=== PATIENT | female | born 2000 | race Caucasian/White ===

== ENCOUNTER → 2023-04-04 06:59 | Outpatient (CLI) | payer OTHER, SELFPAY ==
--- NOTE | 2023-04-04 07:00 | DI.US.S_ITS ---
PROCEDURE: US OB <= 14 WEEKS FETUS INDICATIONS: THREATENED OUTSIDE/PRIOR DATING DATA: Last menstrual period (LMP): 01/26/2023 LMP-based estimated date of delivery (RAVI): 11/02/2023 First dating scan (date and location): 04/03/2023 Estimated date of delivery (RAVI) from first dating scan: 11/03/2023 TECHNIQUE: Real-time scanning was performed of the fetus and maternal pelvic organs, with image documentation. Endovaginal scanning was also performed to better visualize the fetus and maternal ovaries. COMPARISON: [facility], US, US OB <= 14 WEEKS FETUS, 04/03/2023, 15:30. FINDINGS: Embryo: Intrauterine gestational sac is seen with yolk sac and pole. Mean gestational sac diameter is 4.1 cm. [place]-rump length is 2.5 cm. A small perigestational sac hemorrhage is seen posteriorly measuring 3.4 x 2.6 x 0.2 cm. Additional perigestational sac hemorrhage is seen to the left of the gestational sac measuring 1.9 x 0.6 x 0.7 cm. Heart rate: No cardiac motion is seen. Maternal organs: A right corpus luteum cyst is noted. Left ovary is not well visualized. No adnexal mass. IMPRESSION: Intrauterine is seen with no cardiac motion, which is diagnostic for early failure. Two small perigestational sac hemorrhages are noted. Approved by: Dave Long M.D. on 04/04/2023 at 8:16
== END ==
PROVIDERS: PCP Advanced Practice Midwife; Referring Provider Specialist; Visit Provider Specialist
DX: O02.1 Missed abortion (principal)
CPT/HCPCS: 76801; 76817

== ENCOUNTER 2023-04-20 09:50 | Day surgery (SDC) | payer OTHER, SELFPAY ==
[2023-04-17 12:07] VITALS: BMI 24.9
[2023-04-20] VITALS (7 sets, daily range): BP systolic 84–112; BP diastolic 45–66; PULSE 61–89; RESP 10–18; TEMP 36.1–36.8; O2SAT 98–100; BMI 24.9
--- NOTE | 2023-04-20 | PATH_ITS ---
[facility] Accession Number: [id number] No. of containers..01 Tissue . 01 Material submitted: . product of conception - POC . 01 Diagnosis: Products of Conception: Products of conception identified. Outside consultation requested for IHC and DNA ploidy studies to exclude molar gestation; those results will be reported as an addendum. . . . . MRV 04/25/2023 1100 Local . 01 Electronically signed: . Thu Galvez MD, Pathologist NPI- [id number] . 01 Gross description: . The specimen is received in formalin labeled with the patient's name, , and products of conception, and consists of multiple variable raza spongy to membranous soft tissue fragments admixed with hemorrhagic material aggregating to 8.3 x 6.9 x 2.7 cm. A disrupted sac-like structure is identified measuring 4.2 x 1.7 x 0.2 cm. No tissue is identified. [employer] sections are submitted in cassettes A1-A2. ([id number]) /Lele 04/21/2023 1320 Local . 01 Pathologist provided ICD-10: O02.0 . 01 CPT . 517779 Specimen Comment: A courtesy copy of this report has been sent to [phone] Performed at: 01 [facility] [address] [place] [address] [address], [place], [place] [id number] MD Clement Aguirre MD Phone: [phone]
[2023-04-20] MEDS: LACTATED RINGERS 1,000 ML 42 ML IV (10:17)
--- NOTE | 2023-04-20 11:00 | SUR.OPER ---
Lithotomy on padded OR bed, head on pillow, arms secured on padded arm boards at <90 degrees abduction. Legs secured in padded yellow fins stirrups.
--- NOTE | 2023-04-20 11:02 | PM.GYNHP.1 ---
History of Present Illness History of Present Illness Reason for admission: missed Narrative: Alesha Leonardo is a 22 year old A2, LMP @ admitted with missed AB after failre to evacuate uterus with two doses of cytotec. Loss of viability documented with US x 3 with the most recent US in DI on 04/04/2023 showing: PROCEDURE:? US OB <= 14 WEEKS FETUS ? INDICATIONS:? THREATENED ? OUTSIDE/PRIOR DATING DATA:? Last menstrual period (LMP):? 01/26/2023 LMP-based estimated date of delivery (RAVI):? 11/02/2023 First dating scan (date and location):? 04/03/2023 Estimated date of delivery (RAVI) from first dating scan:? 11/03/2023 ? TECHNIQUE:? Real-time scanning was performed of the fetus and maternal pelvic organs, with image documentation.? Endovaginal scanning was also performed to better visualize the fetus and maternal ovaries.? ? COMPARISON:? [facility], US, US OB <= 14 WEEKS FETUS, 04/03/2023, 15:30. ? FINDINGS:? ? Embryo:? Intrauterine gestational sac is seen with yolk sac and pole.? Mean gestational sac diameter is 4.1 cm.? [place]-rump length is 2.5 cm.? A small perigestational sac hemorrhage is seen posteriorly measuring 3.4 x 2.6 x 0.2 cm.? Additional perigestational sac hemorrhage is seen to the left of the gestational sac measuring 1.9 x 0.6 x 0.7 cm. Heart rate:? No cardiac motion is seen. ? Maternal organs:? A right corpus luteum cyst is noted.? Left ovary is not well visualized.? No adnexal mass. ? ? IMPRESSION:? Intrauterine is seen with no cardiac motion, which is diagnostic for early failure.? Two small perigestational sac hemorrhages are noted. After consideration of all options, the patient has decided to move forward with suction curettage of the uterus to complete her missed . Blood type is unknown at the time of this dictation but will be drawn and reported prior to the patient's discharge.later today. [facility] Medical History (Updated 04/12/23 @ 19:48 by Rossy Pimentel) Anxiety (~2016) Depression (~2017) Eczema Heavy menstrual period Irregular menstrual cycle Painful menstrual periods Vasovagal syncope (~2018) Surgical History (Updated 03/08/23 @ 15:37 by Lissa Hunter RN) [place] teeth extracted Family History (Updated 04/12/23 @ 19:51 by Rossy Pimentel) Family/Other Hyperlipidemia Hypertension Depression Grandmother Depression Mental health problem Sister Depression Mental health problem Grandmother Breast cancer Grandmother Breast cancer Mother Hyperthyroidism Father Diabetes mellitus Hyperlipidemia Hypertension Mental health problem Grandfather History of heart disease Hypertension Social History marital status: number of children: 0 household members: spouse lives independently: Yes caregiver/support person: No housing: apartment pets and animals: No education level: high school occupational status: employed (works from home) current occupational exposures/hazards: No special zelalem needs: No travel history: recent (domestic only) seatbelt use: always water heater temp set < 120 deg: Yes working smoke detector in home: Yes fire extinguisher in home: Yes carbon monox detector in home: Yes firearms in home: No do you feel safe at home: Yes Smoking Status: Current some day smoker second hand exposure: No alcohol intake: current substance use type: marijuana (stopped when she found out she was ) during the past year weight has: increased > 10 lbs well-balanced diet: about half the time daily servings fruits/ve-4 caffeine: Yes (1 cup coffee in AM) Type(s) of exercise: walking and running frequency: 5-6 times per week duration: 15-30 minutes/day Meds Home Medications and Allergies Allergies Allergy/AdvReac Type Severity Reaction Status Date / Time No Known Drug Allergies Allergy Unverified 04/13/23 15:20 Review of Systems Review of Systems Narrative: Problem-specific ROS positives included in HPI Exam Vital Signs (past 8 hours): - 04/20/23 10:11 Temperature 97 F L Pulse Rate 87 Respiratory Rate 18 Blood Pressure 104/66 Pulse Oximetry 100 Oxygen Delivery Method Room Air Oxygen Delivery Method Room Air Const General: cooperative and comfortable Nutritional Appearance: average body habitus Orientation: alert and oriented x3 HENMT Head: normal to inspection, atraumatic and abrasion Ears: hearing grossly normal bilaterally Face and sinus: face symmetric Eyes General: appearance normal, both eyes and all related structures Conjunctivae: conjunctivae normal Sclera: sclerae normal EOM: EOM intact bilaterally Neck Neck: normal visual inspection Resp Effort & Inspection: normal respiratory effort and able to speak in complete sentences Auscultation: clear to auscultation bilaterally Cardio Rate: regular rate Rhythm: regular rhythm Heart Sounds: S1 normal, S2 normal and no murmurs GI Inspection: normal to inspection Palpation: soft and no hepatosplenomegaly External Female Exam: other (No significant bleeding noted) Extrem General: no calf tenderness Psych Appearance: grossly normal Mental Status: mental status grossly normal Speech and Movement: speech and movement normal Mood: congruent mood Affect: normal affect Attitude: cooperative Thought Process: normal Thought Content: normal Judgment: judgment good Assessment & Plan Assessment and plan (1) Missed with demise before 20 completed weeks of gestation: Problem details: 8 week size Status: Acute Plan Patient counseled regarding alternatives, risks, benefits, and potential complications associated with suction curettage of the uterus. With full understanding of the above, a written consent was executed, signed, and witnessed this date. Time Spent With Patient Time with patient: less than 30 minutes
--- NOTE | 2023-04-20 11:22 | PM.PREOP ---
Pre-operative Note COVID-19 COVID-19 status: Not tested Criteria for continued procedure: Non-surgical alternatives not available or appropriate per current SOC Interval Note History & Physical reviewed/Exam performed by Physician: Yes Changes to H&P: No
--- NOTE | 2023-04-20 11:53 | P.OP_ITS ---
Operative Date/Time/Diagnoses Date of procedure: 04/20/23 Time of procedure: 11:10 Pre-op diagnosis: Missed Post-op diagnosis: same Procedure & Clinicians Procedure: Procedures Operation Date: 04/20/23 11:30 Actual Procedure Side Surgeon christos keenan D&C Keon Cesar MD Indications: Alesha Leonardo is a 22 year old A2, LMP @ admitted with missed AB after failre to evacuate uterus with two doses of cytotec.? Loss of viability documented with US x 3 with the most recent US in DI on 04/04/2023 showing: PROCEDURE:? US OB <= 14 WEEKS FETUS ? INDICATIONS:? THREATENED ? OUTSIDE/PRIOR DATING DATA:? Last menstrual period (LMP):? 01/26/2023 LMP-based estimated date of delivery (RAVI):? 11/02/2023 First dating scan (date and location):? 04/03/2023 Estimated date of delivery (RAVI) from first dating scan:? 11/03/2023 ? TECHNIQUE:? Real-time scanning was performed of the fetus and maternal pelvic organs, with image documentation.? Endovaginal scanning was also performed to better visualize the fetus and maternal ovaries.? ? COMPARISON:? [facility], US, US OB <= 14 WEEKS FETUS, 04/03/2023, 15:30. ? FINDINGS:? ? Embryo:? Intrauterine gestational sac is seen with yolk sac and pole.? Mean gestational sac diameter is 4.1 cm.? [place]-rump length is 2.5 cm.? A small perigestational sac hemorrhage is seen posteriorly measuring 3.4 x 2.6 x 0.2 cm.? Additional perigestational sac hemorrhage is seen to the left of the gestational sac measuring 1.9 x 0.6 x 0.7 cm. Heart rate:? No cardiac motion is seen. ? Maternal organs:? A right corpus luteum cyst is noted.? Left ovary is not well visualized.? No adnexal mass. ? ? IMPRESSION:? Intrauterine is seen with no cardiac motion, which is diagnostic for early failure.? Two small perigestational sac hemorrhages are noted. After consideration of all options, the patient has decided to move forward with suction curettage of the uterus to complete her missed and is admitted today for her scvheduled surgery.? Surgeon: Keon Cesar Anesthesia Type: General Operative Notes Findings: 10 week uterine size prior to evacuation and 8 week size post evacuation. Moderate amounts of POCs were obtained. Closure Type: not applicable Specimen(s): products of conception Applied: other (Pitocin 10 units IM, Methergine 0.2 mg IM) Estimated blood loss (mL): 150 Procedure in detail: With the patient under general anesthesia in the modified dorsal lithotomy position, the perineum, and vagina were prepped and draped in the usual fashion for suction curettage. A pre-surgical safety time-out was then taken in accordance with [facility] Main OR protocols. A bivalve speculum was inserted in the vagina and the cervix easily visualized. The anterior lip of the cervix was grasped with an Allis clamp and the endocervical canal was dilated gently to 8 mm in diameter. An 8 mm curved curette was then introduced through the endocervical canal into the endometrial cavity and suction applied. Numerous passes were taken in all quadrants of the endometrial cavity producing moderate amounts of products of conception. Gentle sharp curettage was then performed in all quadrants to make sure that there was no retained POCs and none were evident. A final pass with the suction curette was performed and no additional tissue was obtained. The operation was then terminated by removal of the suction curette from the endometrial cavity, and the Allis clamp from the anterior lip of the cervix. The patient was awakened from anesthesia and transferred to the PACU for a period of observation and recovery after having tolerated the procedure well. Complications: none Post-operative Condition: stable Disposition: PACU Plan for aftercare: Routine postop care. Postop follow-up in 2 weeks or as needed.
--- NOTE | 2023-04-20 12:34 | SUR.PHASEII ---
Tearful, denies pain, no N/V. Ready to discharge and wants to see her . Dressed self and taken to car by volunteer. all questions answered.
== END 2023-04-20 12:46 | disposition home or self-care (01) ==
PROVIDERS: PCP Advanced Practice Midwife; Referring Provider Obstetrics & Gynecology; Visit Provider Obstetrics & Gynecology
PROC: (CPT 58120; principal; 2023-04-20 11:30)
DX: O02.1 Missed abortion (principal); Z3A.10 10 weeks gestation of pregnancy
CPT/HCPCS: 59820; J1100; J1885; J2250; J2405; J2590; J2704; J3010

== ENCOUNTER 2023-04-28 19:29 | Day surgery (SDC) | payer OTHER, SELFPAY ==
--- NOTE | 2023-04-28 | PATH_ITS ---
[facility] Accession Number: [id number] No. of containers..01 Tissue . 01 Material submitted: . product of conception - RETAINED PRODUCTS . 01 Diagnosis: Uterine Contents: Degenerated chorionic villi (products of conception). - Blood clot, gestational endometrium, and decidual tissues. - No evidence for gestational trophoblastic disease. MRV 05/03/2023 1758 Local . 01 Electronically signed: . Edie Murillo MD, Pathologist NPI- [id number] . 01 Gross description: . The specimen is received in formalin labeled with the patient's name, , and retained products consists of multiple raza, variably spongy to membranous soft tissue admixed with hemorrhagic material aggregating to 8.4 x 7.5 x 2.0 cm. No tissue is identified. [employer]rays sections are submitted in cassettes A1-A2. ([id number]) /MRV 05/01/2023 1603 Local . 01 Pathologist provided ICD-10: O02.9 . 01 CPT . 705338 Specimen Comment: A courtesy copy of this report has been sent to [phone] Performed at: 01 [facility] [address] [place] [address] [address], [place], [place] [id number] MD Clement Aguirre MD Phone: [phone]
[2023-04-28 19:41] VITALS: BP 110/53; PULSE 59; RESP 18; TEMP 36.8; O2SAT 100; BMI 24.0
--- NOTE | 2023-04-28 19:49 | ED_ITS ---
HPI - General Adult General Chief complaint: Vaginal Bleeding Stated complaint: Vaginal bleeding, abd pain, nausea after D&C 8 day Time Seen by Provider: 04/28/23 19:49 Source: patient Mode of arrival: Ambulatory History of Present Illness HPI narrative: 22-year-old woman underwent D&C on April 20 with a missed after retained products were appreciated following 2 doses of Cytotec. Patient returns today complaining of continued light bleeding since the D&C, cramping for the last hour dizziness and weakness with 9/10 lower abdominal pain. Bleeding has significantly increased over the last hour with clots and continue bleeding. She does not describe fevers. Related Data Allergies Allergy/AdvReac Type Severity Reaction Status Date / Time No Known Drug Allergies Allergy Verified 04/28/23 19:41 Review of Systems Review of Systems Narrative: Pertinent positive and negative findings as per HPI Patient History Medical History (Updated 04/28/23 @ 21:47 by Leah Velásquez MD) Anxiety (~2017) Depression (~2017) Eczema Heavy menstrual period Irregular menstrual cycle Painful menstrual periods Vasovagal syncope (~2018) Surgical History (Updated 04/28/23 @ 21:19 by Mery Gallegos MD) H/O dilation and curettage [place] teeth extracted Family History Family/Other Hyperlipidemia Hypertension Depression Grandmother Depression Mental health problem Sister Depression Mental health problem Grandmother Breast cancer Grandmother Breast cancer Mother Hyperthyroidism Father Diabetes mellitus Hyperlipidemia Hypertension Mental health problem Grandfather History of heart disease Hypertension Social History marital status: number of children: 0 household members: spouse lives independently: Yes caregiver/support person: No housing: apartment pets and animals: No education level: high school occupational status: employed (works from home) current occupational exposures/hazards: No special zelalem needs: No travel history: recent (domestic only) seatbelt use: always water heater temp set < 120 deg: Yes working smoke detector in home: Yes fire extinguisher in home: Yes carbon monox detector in home: Yes firearms in home: No do you feel safe at home: Yes Smoking Status: Current every day smoker second hand exposure: No alcohol intake: current substance use type: marijuana (stopped when she found out she was ) during the past year weight has: increased > 10 lbs well-balanced diet: about half the time daily servings fruits/ve-4 caffeine: Yes (1 cup coffee in AM) Type(s) of exercise: walking and running frequency: 5-6 times per week duration: 15-30 minutes/day Smoking Status: Current every day smoker alcohol intake frequency: holidays/special occasions only Substance Use Type: marijuana Exam Initial Vital Signs Initial Vital Signs: Vital Signs Temperature 98.2 F 04/28/23 19:41 Pulse Rate 59 L 04/28/23 19:41 Respiratory Rate 18 04/28/23 19:41 Blood Pressure 110/53 L 04/28/23 19:41 Pulse Oximetry 100 04/28/23 19:41 Oxygen Delivery Method Room Air 04/28/23 19:41 General: Pale, anxious, moderate lower abdominal pain. Able to give a complete and coherent history. Well-nourished well-developed HEENT: Dry mucous membranes, normal sclera with reactive pupils, Respiratory: Lungs are clear to auscultation, no wheezing no rales no rhonchi. Full and symmetrical air movement Cardiac: Regular rate and rhythm no murmurs no bruits Abdomen: Soft, tender in pelvic quadrants without rebound or guarding, good bowel tones, no flank pain Skin: Pale, Warm and dry, no rashes Neurologic: Grossly neurologically intact with no obvious asymmetries or abnormalities Extremities: No trauma, well perfused Psych: Cooperative, appropriate insight and affect Course Orders Ordered: ED Orders 04/28/23 20:00 US pelvic complete Stat 04/28/23 20:07 Beta HCG, Quant [HCG Quantitative /Beta subunit] Stat Complete Blood Count AUTO DIFF Stat Comprehensive Metabolic Panel Stat Type and Screen Stat Albuterol (Albuterol 2.5 Mg/3 Ml Neb (Adult)) 2.5 mg INH NOW PRN PRN Reason: Coughing, Wheezing, Dyspnea Benzocaine (Benzocaine/Menthol 1 Jf Pkt) 1 each PO PRN PRN PRN Reason: Sore Throat Fentanyl (Fentanyl 100 Mcg/2 Ml Inj) 0 mcg IV Q5M PRN PRN Reason: Pain, Moderate (4-6) Hydromorphone HCl (Hydromorphone 2 Mg Inj) 0 mg IV Q5M PRN PRN Reason: Pain, Severe (7-10) Hydroxyzine Pamoate (Hydroxyzine Pamoate 25 Mg Capsule) 50 mg PO NOW PRN PRN Reason: Moderate Pain Lactated Ringer's (Lactated Ringers) 1,000 mls @ 120 mls/hr IV CONT ALEJANDRO Lorazepam (Lorazepam 2 Mg/Ml Inj) 0.5 mg IV NOW PRN PRN Reason: Anxiety Meperidine HCl (Meperidine 50 Mg/Ml Inj) 25 mg IV PACUNOW PRN PRN Reason: Moderate pain or shivering Metoclopramide HCl (Metoclopramide 10 Mg/2 Ml Inj) 10 mg IV NOW PRN PRN Reason: Nausea And Vomiting Ondansetron HCl (Ondansetron 4 Mg/2 Ml Inj) 4 mg IV NOW PRN PRN Reason: Nausea And Vomiting Oxycodone HCl (Oxycodone Ir 5 Mg Tablet) 5 mg PO PACUNOW PRN PRN Reason: Mild or moderate pain Discontinued Medications Sodium Chloride (Normal Saline 0.9%) 1,000 mls @ 1,000 mls/hr IV BOLUS ONE Stop: 04/28/23 21:01 Last Infusion: 04/28/23 20:57 Dose: 0 mls/hr Documented By: Admin: 04/28/23 20:18 Dose: 1,000 mls/hr Documented By: MARIEL Ketorolac Tromethamine (Ketorolac 30 Mg/Ml Vial) 15 mg IV NOW ONE Stop: 04/28/23 20:03 Last Admin: 04/28/23 20:17 Dose: 15 mg Documented By: MARIEL Ondansetron HCl (Ondansetron 4 Mg/2 Ml Inj) 4 mg IV NOW ONE Stop: 04/28/23 20:03 Last Admin: 04/28/23 20:15 Dose: 4 mg Documented By: MARIEL Oxycodone/Acetaminophen (Oxycodone/Apap 5/325 Prepack) 1 bottle MISC SEEINSTR ONE Stop: 04/28/23 21:03 Last Admin: 04/28/23 21:14 Dose: 1 bottle Documented By: MARIEL Oxycodone/Acetaminophen (Oxycodone/Apap 5/325 Prepack) 1 bottle MISC SEEINSTR ONE Stop: 04/28/23 21:11 Vital Signs Vital signs: Vital Signs - 8 hr 04/28/23 19:41 Temperature 98.2 F Pulse Rate 59 L Respiratory Rate 18 Blood Pressure 110/53 L Pulse Oximetry 100 Oxygen Delivery Method Room Air Medical Decision Making Lab Data 04/28/23 20:07 04/28/23 20:07 Labs: Lab Results 04/28/23 04/28/23 04/28/23 Range/Units 20:07 20:07 20:07 WBC 9.3 (4.5-11.0) X10^3/uL RBC 4.10 (4.0-5.2) X10^6/uL Hgb 11.9 L (12.0-16.0) g/dL Hct 34.3 L (36-46) % MCV 83.8 (80-100) fL MCH 29.1 (26-34) PG MCHC 34.7 (30-36) % RDW 12.7 (11.6-14.8) % Plt Count 350 (150-400) X10^3/uL Neut % (Auto) 48.6 L (50-75) % Lymph % (Auto) 42.6 H (25-40) % [place] % (Auto) 5.7 (3-14) % Eos % (Auto) 2.5 (2-4) % Baso % (Auto) 0.6 (0-2) % Neut # (Auto) 4500 (9800-1095) /uL Lymph # (Auto) 4000 (8384-5823) /uL [place] # (Auto) 500 (0-900) /uL Eos # (Auto) 200 (0-450) /uL Baso # (Auto) 100 (0-100) /uL Sodium 136 L (137-145) mmol/L Potassium 3.6 (3.4-5.1) mmol/L Chloride 103 (98-107) mmol/L Carbon Dioxide 22 (22-32) mmol/L BUN 11 (7-17) mg/dL Creatinine 0.64 (0.52-1.04) mg/dL Estimated GFR > 60 (>60) mL/min BUN/Creatinine Ratio 17.2 (6-22) Glucose 104 H (70-100) mg/dL Calcium 8.8 (8.4-10.2) mg/dL Total Bilirubin 0.3 (0.2-1.3) mg/dL AST 26 (14-36) IU/L ALT 17 (<35) IU/L Alkaline Phosphatase 46 (38-126) U/L Total Protein 7.5 (6.3-8.2) g/dL Albumin 4.3 (3.5-5.0) g/dL Globulin 3.2 (1.7-4.1) g/dL Albumin/Globulin Ratio 1.3 (1.0-2.8) HCG, Quant mIU/mL Blood Type A Positive Antibody Screen Negative 04/28/23 Range/Units 20:07 WBC (4.5-11.0) X10^3/uL RBC (4.0-5.2) X10^6/uL Hgb (12.0-16.0) g/dL Hct (36-46) % MCV (80-100) fL MCH (26-34) PG MCHC (30-36) % RDW (11.6-14.8) % Plt Count (150-400) X10^3/uL Neut % (Auto) (50-75) % Lymph % (Auto) (25-40) % [place] % (Auto) (3-14) % Eos % (Auto) (2-4) % Baso % (Auto) (0-2) % Neut # (Auto) (4547-2420) /uL Lymph # (Auto) (5576-1620) /uL [place] # (Auto) (0-900) /uL Eos # (Auto) (0-450) /uL Baso # (Auto) (0-100) /uL Sodium (137-145) mmol/L Potassium (3.4-5.1) mmol/L Chloride (98-107) mmol/L Carbon Dioxide (22-32) mmol/L BUN (7-17) mg/dL Creatinine (0.52-1.04) mg/dL Estimated GFR (>60) mL/min BUN/Creatinine Ratio (6-22) Glucose (70-100) mg/dL Calcium (8.4-10.2) mg/dL Total Bilirubin (0.2-1.3) mg/dL AST (14-36) IU/L ALT (<35) IU/L Alkaline Phosphatase (38-126) U/L Total Protein (6.3-8.2) g/dL Albumin (3.5-5.0) g/dL Globulin (1.7-4.1) g/dL Albumin/Globulin Ratio (1.0-2.8) HCG, Quant 178 mIU/mL Blood Type Antibody Screen MDM Narrative Medical decision making narrative: CC: Vaginal bleeding and cramping, new problem uncertain prognosis Complicating co-morbidities: D&C on April 20 Data collected from: patient, Medical records reviewed: Surgical notes from April 20 reviewed Differential considered: Retained products of conception, endomyometritis, menstrual cycle Exam documented above, pertinent findings include: Pelvic cramping and increasing vaginal bleeding Lab Test results independently reviewed as above. Pertinent findings: CBC shows mild anemia at 11.9 and 34.3 with no leukocytosis. No prior for comparison CMP is reviewed and is unremarkable Imaging studies independently reviewed: Preliminary ultrasound report shows vascular retained products of conception Consultations: 830pm Dr Gallegos. Treatments: Fluids, parenteral pain medications Re-evaluations: Patient is feeling somewhat better, relatively heavy vaginal bleeding continues. Discussion: 22-year-old woman with a D&C on April 20 after failing Cytotec. Still with retained products for ultrasound today with increasing cramping and bleeding. Care is reviewed with Dr. Gallegos and patient will be taken to the operating room for repeat D&C. Findings and recommendations reviewed with patient. Questions are answered. In discussion with Dr. Gallegos, she is given a small prepack of Percocet as her surgery will be done close to midnight and no outpatient options for filling prescriptions are available. Discharge Plan Departure Patient Disposition: Admitted to Surgery Clinical Impression: Retained products of conception, Vaginal bleeding Admit Date/Time: 04/28/23 20:41 Admit Provider: Mery Gallegos
--- NOTE | 2023-04-28 20:00 | DI.US.S_ITS ---
PROCEDURE: US PELVIC COMPLETE INDICATIONS: BLEEDING AFTER D C ON 04/20 TECHNIQUE: Real-time scanning was performed of the pelvic organs, with image documentation. Additional endovaginal scanning was necessary due to incomplete visualization of the adnexal and endometrial structures by transabdominal scanning. COMPARISON: Located Within [facility], US, US OB <= 14 WEEKS FETUS, 04/04/2023, 7:16. FINDINGS: Uterus: Uterus is retroverted and normal in size at 8.8 x 4.9 x 5.9 cm. The myometrium is homogeneous. The endometrium measures 33.7 mm combined thickness. Heterogeneous echotexture within thickened endometrium is seen with mildly increased vascularity. Ovaries: The right ovary measures 2.9 x 2.2 x 2.4 cm, with a calculated ovarian volume of 7.9 cc. The left ovary is not well visualized on this study. 2.2 x 1.0 x 1.7 cm hypoechoic structure is noted in right ovary with increased vascularity. Less than 12 follicles can be seen in right ovary. No adnexal masses are seen. Other: Small amount of free fluid is seen in posterior cul-de-sac. IMPRESSION: 1. Thickened endometrium with heterogeneous echotexture and mildly increased vascularity concerning for retained products. 2. Nonspecific hypoechoic area within right ovary and show increased vascularity. This is of indeterminate etiology . Follow-up study in 4-6 weeks is recommended. Left ovary is not visualized on this study. No gross adnexal mass. We strive to produce accurate, complete, and clear reports of imaging services. To assist us in improving patient care, this report was composed using standard report templates and voice recognition software. Therefore, it may contain abnormal punctuation, insertions and/or omissions. Occasional wrong-word or sound-alike substitutions may occur. Though we review the report and make efforts to correct it, we do recommend that the report be read carefully in proper context to recognize any text inaccuracies. Dictated by: Augie Butler M.D. on 04/28/2023 at 20:43 Approved by: Augie Butler M.D. on 04/28/2023 at 20:49
[2023-04-28] MEDS: ONDANSETRON 4 MG/2 ML INJ IV (20:15)
[2023-04-28 20:16] LABS: Add Manual Diff / Slide Review NO; Basophils Absolute Auto 100 /uL (0-100); Basophils Percent Auto 0.6 % (0-2); Eosinophils Absolute Auto 200 /uL (0-450); Eosinophils Percent Auto 2.5 % (2-4); Hematocrit 34.3 % (36-46); Hemoglobin 11.9 g/dL (12.0-16.0); Lymphocytes Absolute Auto 4000 /uL (1100-4500); Lymphocytes Percent Auto 42.6 % (25-40); Mean Corpuscular HGB Conc 34.7 % (30-36); Mean Corpuscular Hemoglobin 29.1 PG (26-34); Mean Corpuscular Volume 83.8 fL (80-100); Monocytes Absolute Auto 500 /uL (0-900); Monocytes Percent Auto 5.7 % (3-14); Neutrophils Absolute Auto 4500 /uL (1500-7000); Neutrophils Percent Auto 48.6 % (50-75); Platelet Count 350 X10^3/uL (150-400); Red Cell Distribution Width 12.7 % (11.6-14.8); White Blood Cell Count 9.3 X10^3/uL (4.5-11.0)
[2023-04-28] MEDS: KETOROLAC 30 MG/ML VIAL 15 MG IV (20:17)
[2023-04-28] MEDS: SODIUM CHLORIDE 0.9% 1,000 ML 1000 ML IV (20:18)
--- NOTE | 2023-04-28 20:20 | PC.NURSE ---
Patient had d/c 8 days ago. Has been doing well until this afternoon. Sudden onset of significant cramping and pain with large gush of bleeding reports increase in bleeding with about 5 clots. Patient states until this afternoon pain was manageable and didn't even take anything this morning. Patient states she was more active today than she has been since D/C. Patient mucous membranes appear dry and generally pale. patient reports mild dizziness with activity
[2023-04-28 20:28] LABS: Alanine Aminotransferase 17 IU/L (<35); Albumin 4.3 g/dL (3.5-5.0); Albumin Globulin Ratio 1.3 (1.0-2.8); Alkaline Phosphatase 46 U/L (38-126); Aspartate Aminotransferase 26 IU/L (14-36); BUN Creatinine Ratio 17.2 (6-22); Bilirubin Total 0.3 mg/dL (0.2-1.3); Blood Urea Nitrogen 11 mg/dL (7-17); Calcium 8.8 mg/dL (8.4-10.2); Carbon Dioxide 22 mmol/L (22-32); Chloride 103 mmol/L (98-107); Estimated Glomerular Filt Rate > 60 mL/min (>60); Globulin 3.2 g/dL (1.7-4.1); Glucose 104 mg/dL (70-100); HEMOLYSIS 48 (0-50); Potassium 3.6 mmol/L (3.4-5.1); Sodium 136 mmol/L (137-145); Total Protein 7.5 g/dL (6.3-8.2)
[2023-04-28 20:46] LABS: HCG Quantitative /Beta subunit 178 mIU/mL
[2023-04-28 20:56] VITALS: BP 104/55; PULSE 88; RESP 16; O2SAT 99
--- NOTE | 2023-04-28 21:07 | PC.NURSE ---
Consent signed. Patient sending jewelry home with Sebastian (). Sebastian will step out to picking tech clothing for patient for d/c. He can be reached at [phone].
[2023-04-28] MEDS: OXYCODONE/APAP 5/325 PREPACK 1 BOTTLE MISC (21:14)
--- NOTE | 2023-04-28 21:15 | PC.NURSE ---
Prepack scanned and dispensed to patient for discharge. Placed in patient belonging bag for patient.
--- NOTE | 2023-04-28 21:17 | P.HPOB_ITS ---
History of Present Illness History of Present Illness Reason for admission: vaginal bleeding (After suction D&C) Narrative: Alesha Leonardo is a 22 year old female 2 para 0020 with retained products of conception. Patient presented to emergency department with bright red bleeding soaking a pad in less than an hour. She also had significant cramping. She underwent a Cytotec trial for a missed . She then had a suction D&C on April 20, 2023. She has continued to bleed since the D&C but the pain and bleeding significantly increased today. [facility] Medical History Anxiety (~2017) Depression (~2017) Eczema Heavy menstrual period Irregular menstrual cycle Painful menstrual periods Vasovagal syncope (~2018) Surgical History (Updated 04/28/23 @ 21:19 by Mery Gallegos MD) H/O dilation and curettage [place] teeth extracted Family History Family/Other Hyperlipidemia Hypertension Depression Grandmother Depression Mental health problem Sister Depression Mental health problem Grandmother Breast cancer Grandmother Breast cancer Mother Hyperthyroidism Father Diabetes mellitus Hyperlipidemia Hypertension Mental health problem Grandfather History of heart disease Hypertension Social History marital status: number of children: 0 household members: spouse lives independently: Yes caregiver/support person: No housing: apartment pets and animals: No education level: high school occupational status: employed (works from home) current occupational exposures/hazards: No special [place] needs: No travel history: recent (domestic only) seatbelt use: always water heater temp set < 120 deg: Yes working smoke detector in home: Yes fire extinguisher in home: Yes carbon monox detector in home: Yes firearms in home: No do you feel safe at home: Yes Smoking Status: Current every day smoker second hand exposure: No alcohol intake: current substance use type: marijuana (stopped when she found out she was ) during the past year weight has: increased > 10 lbs well-balanced diet: about half the time daily servings fruits/ve-4 caffeine: Yes (1 cup coffee in AM) Type(s) of exercise: walking and running frequency: 5-6 times per week duration: 15-30 minutes/day Meds Home Medications and Allergies Allergies Allergy/AdvReac Type Severity Reaction Status Date / Time No Known Drug Allergies Allergy Verified 04/28/23 19:41 Exam Vital Signs (past 8 hours): - 04/28/23 19:41 04/28/23 20:56 Temperature 98.2 F Pulse Rate 59 L 88 Respiratory Rate 18 16 Blood Pressure 110/53 L 104/55 L Pulse Oximetry 100 99 Oxygen Delivery Method Room Air Room Air Oxygen Delivery Method Room Air Narrative Exam Narrative: HEENT: No thyromegaly, no anterior cervical or supraclavicular lymphadenopathy. Lungs:Clear to auscultation bilaterally, no wheezes. Cardiovascular: Regular rate and rhythm, no murmurs, rubs, or gallops. Abdomen: No scars. No hepatosplenomegaly. No masses palpable. External genitalia: Normal Vagina: Large amount of blood Cervix: Open. Large amount of clot and blood coming from the os. Bimanual exam: 8 Week size anteverted uterus. Mobile. No adnexal masses or tenderness. Extremities: No edema Objective Imaging US - abdomen: Radiologist's impression: Vascular products of conception in the uterus. Labs 04/28/23 20:07 04/28/23 20:07 Labs: Laboratory Results - last 24 hr 04/28/23 04/28/23 04/28/23 20:07 20:07 20:07 WBC 9.3 RBC 4.10 Hgb 11.9 L Hct 34.3 L MCV 83.8 MCH 29.1 MCHC 34.7 RDW 12.7 Plt Count 350 Neut % (Auto) 48.6 L Lymph % (Auto) 42.6 H [place] % (Auto) 5.7 Eos % (Auto) 2.5 Baso % (Auto) 0.6 Neut # (Auto) 4500 Lymph # (Auto) 4000 [place] # (Auto) 500 Eos # (Auto) 200 Baso # (Auto) 100 Sodium 136 L Potassium 3.6 Chloride 103 Carbon Dioxide 22 BUN 11 Creatinine 0.64 Estimated GFR > 60 BUN/Creatinine Ratio 17.2 Glucose 104 H Calcium 8.8 Total Bilirubin 0.3 AST 26 ALT 17 Alkaline Phosphatase 46 Total Protein 7.5 Albumin 4.3 Globulin 3.2 Albumin/Globulin Ratio 1.3 HCG, Quant Blood Type A Positive Antibody Screen Negative 04/28/23 20:07 WBC RBC Hgb Hct MCV MCH MCHC RDW Plt Count Neut % (Auto) Lymph % (Auto) [place] % (Auto) Eos % (Auto) Baso % (Auto) Neut # (Auto) Lymph # (Auto) [place] # (Auto) Eos # (Auto) Baso # (Auto) Sodium Potassium Chloride Carbon Dioxide BUN Creatinine Estimated GFR BUN/Creatinine Ratio Glucose Calcium Total Bilirubin AST ALT Alkaline Phosphatase Total Protein Albumin Globulin Albumin/Globulin Ratio HCG, Quant 178 Blood Type Antibody Screen Assessment & Plan Assessment & Plan narrative: Assessment: 22-year-old 2 para 0 with retained products conception after a missed and a suction D&C Plan: Suction D&C The risks, benefits, and alternatives to the procedure were explained to the patient. The risks including bleeding, infection, and uterine perforation. She understands these risks and agrees to proceed. A full par Q was held and consent form was signed. Time Spent With Patient Time with patient: less than 30 minutes
--- NOTE | 2023-04-28 21:22 | PM.PREOP ---
Pre-operative Note COVID-19 Criteria for continued procedure: Non-surgical alternatives not available or appropriate per current SOC Interval Note History & Physical reviewed/Exam performed by Physician: Yes Changes to H&P: No H&P completed within 30 days and has changed as indicated here:: 04/28/23
[2023-04-28] MEDS: CEFAZOLIN 2 GM/100 ML PREMIX 100 ML IV (21:30)
--- NOTE | 2023-04-28 21:42 | SUR.OPER ---
Lithotomy on padded OR bed, head on pillow, arms secured on padded arm boards at <90 degrees abduction. Legs secured in padded yellow fins stirrups.
[2023-04-28 21:55] VITALS: BP 111/68; PULSE 95; RESP 16; TEMP 36.9; O2SAT 100
--- NOTE | 2023-04-28 22:00 | PM.GYNOP.1 ---
Operative Date/Time/Diagnoses Date of procedure: 04/28/23 Time of procedure: 22:00 Pre-op diagnosis: Retained products of conception Brisk vaginal bleeding Post-op diagnosis: same Procedure & Clinicians Procedure: Procedures Operation Date: 04/28/23 20:45 Actual Procedure Side Surgeon p Hysteroscopy D&C Mery Gallegos MD Indications: Brisk vaginal bleeding Retained products of conception on ultrasound Surgeon: Mery Gallegos Anesthesia Type: General Operative Notes Findings: 9 week size anteverted uterus Large amount of clot and tissue in the uterus Closure Type: not applicable Specimen(s): products of conception Estimated blood loss (mL): 100 Blood products transfused: none Procedure in detail: After informed consent was obtained, the patient was taken to the operating room where she was placed in the dorsal supine position. After adequate general endotracheal anesthesia was achieved, she was placed in the dorsal lithotomy position, and prepped and draped in the usual sterile fashion. A time-out was performed. A bivalve speculum was placed into the vagina and the anterior lip of the cervix grasped with a single-tooth tenaculum. There was a large amount of clot in the vagina and extruding from the cervical os. A ring forceps was placed into the uterus and a large amount of clot and tissue were removed. Suction curettage was performed yielding a large amount of clot. Sharp curettage was performed yielding minimal amount of clot and new bright red bleeding. One more pass with suction revealed blood only. Gritty feel to the uterine lining could be felt on last pass with suction. The instruments were removed from the uterus. The single-tooth tenaculum was removed from the anterior lip of the cervix. The bivalve speculum was removed from the vagina. Sponge, lap, and instrument counts were correct x2. The patient tolerated the procedure well, and was taken to PACU in stable condition. Complications: none Post-operative Condition: stable Disposition: PACU Plan for aftercare: Home after recovery
[2023-04-28 22:01] VITALS: BP 92/42; PULSE 92; RESP 12; O2SAT 100
[2023-04-28 22:10] VITALS: BP 110/73; PULSE 84; RESP 16; O2SAT 100
[2023-04-28] MEDS: OXYCODONE IR 5 MG TABLET PO (22:15)
[2023-04-28 22:36] VITALS: BP 110/68; PULSE 72; RESP 16; TEMP 36.7; O2SAT 100
== END 2023-04-28 22:42 | disposition home or self-care (01) ==
LOC: ED 19:49 → AC 20:59 → OR 04-30 08:09
PROVIDERS: Emergency Provider Emergency Medicine; PCP Advanced Practice Midwife; Referring Provider Emergency Medicine; Visit Provider Obstetrics & Gynecology
PROC: 0UDB8ZZ Extraction of Endometrium, Via Natural or Artificial Opening Endoscopic (ICD-10-PCS; CPT 58558; principal; 2023-04-28 20:45)
DX: O07.4 Failed attempted termination of pregnancy without complication (principal); O02.9 Abnormal product of conception, unspecified
CPT/HCPCS: 59812; 36415; 76830; 76856; 80053; 84702; 85025; 86850; 86900; 86901; 93976; 99284; G0378; J0330; J0690; J1100; J1885; J2250; J2405; J2704; J3010

== ENCOUNTER → 2023-06-11 15:52 | Outpatient (CLI) | payer OTHER, SELFPAY ==
[2023-06-11 17:32] LABS: Free T4, Direct Thyroxine 1.08 ng/dL (0.78-2.19)
[2023-06-11 17:46] LABS: Thyroid Stimulating Hormone 2.23 uIU/mL (0.47-4.68)
[2023-06-11 17:52] LABS: Progesterone, Total 9.14 ng/mL
[2023-06-14 13:03] LABS: Dilute Russell Viper Venom 34.4 sec (0.0-47.0); Lupus Reflex Interpretation Comment: (.)
[2023-06-29 18:12] LABS: Cardiolipin IgA Negative (.)
== END ==
PROVIDERS: PCP Advanced Practice Midwife; Referring Provider Obstetrics & Gynecology; Visit Provider Obstetrics & Gynecology
DX: N96 Recurrent pregnancy loss (principal)
CPT/HCPCS: 36415; 81240; 81241; 81291; 83520; 84144; 84439; 84443; 85598; 85613; 86147; 86148